=== PATIENT | male | born 1995 | race Caucasian/White ===

== ENCOUNTER 2023-10-25 17:26 | Emergency (ER) | payer MEDICAID, SELFPAY ==
[2023-10-25 17:29] VITALS: BP 151/84; PULSE 80; RESP 18; TEMP 37.1; O2SAT 96; BMI 35.9
--- NOTE | 2023-10-25 17:46 | ED_ITS ---
HPI - General Adult General Chief complaint: Ear/Nose/Throat Problem Stated complaint: L ear, earbud cap stuck in ear Time Seen by Provider: 10/25/23 17:27 History of Present Illness HPI narrative: This 28-year-old male comes in with an ear bud lodged in his left ear canal. He states that he attempted to remove it himself but ended up pushing it in farther. He does not have any other complaints. Related Data Home Medications Medication Instructions Recorded Confirmed acetaminophen 500 mg capsule 500 mg PO Q6H PRN 10/25/23 10/25/23 duloxetine 30 mg capsule,delayed 90 mg PO DAILY 10/25/23 10/25/23 release famotidine 40 mg tablet 40 mg PO DAILY 10/25/23 10/25/23 fluticasone propionate inhalation 10/25/23 gabapentin 600 mg tablet 600 mg PO TID 10/25/23 10/25/23 hydroxyzine HCl 50 mg tablet 50 mg PO QHS 10/25/23 10/25/23 olanzapine 10 mg tablet 10 mg PO DAILY 10/25/23 10/25/23 polyethylene glycol 3350 .ROUTE PRN 10/25/23 sennosides 8.6 mg capsule (senna) 8.6 mg PO DAILY 10/25/23 10/25/23 Allergies Allergy/AdvReac Type Severity Reaction Status Date / Time No Known Drug Allergies Allergy Verified 10/25/23 17:36 Review of Systems Status of ROS: Reports: 10 or more systems reviewed and unremarkable except as noted in History and below Narrative: Constitutional: No fevers, no weight gain or loss. Eyes: No discharge. No vision changes. HENT: No congestion, no sore throat . Foreign object in the left ear as described above. Cardiovascular: No chest pain, no palpitations. Respiratory: No shortness of breath, no wheezes, no cough. Gastrointestinal: No abdominal pain, no vomiting, no diarrhea. Genitourinary: No dysuria, no hematuria. Musculoskeletal: Normal range of motion. Skin: No rashes, no pruritis. Neurological: No dizziness, weakness, sensory change, speech change. Endo/Heme/Allergies: No bruising or bleeding. No polydipsia. Pysch: no suicidality, no anxiety, no insomnia. All other systems reviewed and are negative. Exam Narrative: Exam Narrative: Constitutional: Well-developed, well-nourished, no acute distress. HEENT: Normocephalic, atraumatic. Foreign object in the left ear canal. Neck: Normal range of motion. Nontender. Supple. Heart: Regular. No murmurs. Normal rate. Intact distal pulses. Lungs: Clear to auscultation. No chest discomfort. No wheezes, rhonchi, or rales. Abdomen: Normal bowel sounds. Nontender. No rebound tenderness. Genitalia: Deferred. Back: No midline tenderness. Normal range of motion. Extremities: Normal range of motion. No injury. Skin: Intact. No rash. Warm. No erythema or pallor. Neurologic: No altered sensation. No weakness. Alert and oriented. Psychiatric: No suicidality. No anxiety or depression. No insomnia. Nursing notes and vitals signs are reviewed. Const: Vital Signs, click to edit/add: Vital Signs - 24 hr 10/25/23 17:29 Temperature 98.8 F Pulse Rate [Pulse Oximeter] 80 Respiratory Rate 18 Blood Pressure [Ri ght Upper Arm] 151/84 H Pulse Oximetry 96 Oxygen Delivery Me thod Room Air Course Vital Signs Vital signs: Initial Vital Signs Temperature 98.8 F 10/25/23 17:29 Temperature Source Temporal Artery Scan 10/25/23 17:29 Pulse Rate 80 10/25/23 17:29 Respiratory Rate 18 10/25/23 17:29 Blood Pressure 151/84 H 10/25/23 17:29 Blood Pressure Mean 106 H 10/25/23 17:29 Blood Pressure Position Sitting 10/25/23 17:29 Pulse Oximetry 96 10/25/23 17:29 Oxygen Delivery Method Room Air 10/25/23 17:29 Vital Signs Temperature 98.8 F 10/25/23 17:29 Pulse Rate 80 10/25/23 17:29 Respiratory Rate 18 10/25/23 17:29 Blood Pressure 151/84 H 10/25/23 17:29 Pulse Oximetry 96 10/25/23 17:29 Oxygen Delivery Method Room Air 10/25/23 17:29 Temperature 98.8 F 10/25/23 17:29 Pulse Rate 80 10/25/23 17:29 Respiratory Rate 18 10/25/23 17:29 Blood Pressure 151/84 H 10/25/23 17:29 Pulse Oximetry 96 10/25/23 17:29 Oxygen Delivery Method Room Air 10/25/23 17:29 Medical Decision Making MDM Narrative Medical decision making narrative: This patient has an ear bud lodged in his left ear canal. I made several attempts with a pickups and was finally able to remove the ear bud. There is no bleeding or sign of injury but there is some erythema in the left ear canal. He is instructed to use Tylenol and ibuprofen as needed and directed. Discharge Plan Discharge Clinical Impression: Foreign body of ear, left Patient Disposition: Home w/ Parent or Adult Condition: Improved Additional Instructions: use [id number] meds as needed and directed. Follow up with MD or return if worsening. Prescriptions: No Action hydroxyzine HCl 50 mg tablet 50 mg PO QHS olanzapine 10 mg tablet 10 mg PO DAILY duloxetine 30 mg capsule,delayed release(DR/EC) 90 mg PO DAILY gabapentin 600 mg tablet 600 mg PO TID acetaminophen 500 mg capsule 500 mg PO Q6H PRN senna 8.6 mg capsule 8.6 mg PO DAILY polyethylene glycol 3350 [Miralax] .ROUTE PRN famotidine 40 mg tablet 40 mg PO DAILY fluticasone propionate [Flovent Diskus] inhalation Stand Alone Forms: [employer] ([employer]) Info Instructions
== END 2023-10-25 18:02 | disposition home or self-care (01) ==
PROVIDERS: Emergency Provider Emergency Medicine Emergency Medical Services; PCP Family Medicine
DX: T16.2XXA Foreign body in left ear, initial encounter (principal)
CPT/HCPCS: 99283; 99284

== ENCOUNTER 2024-09-22 06:41 | Emergency (ER) | payer MEDICAID, SELFPAY ==
[2024-09-22 06:52] VITALS: BP 136/89; PULSE 95; RESP 20; TEMP 37.4; O2SAT 97; BMI 36.6
[2024-09-22 07:22] VITALS: PULSE 97; RESP 18; O2SAT 97
[2024-09-22 07:30] VITALS: PULSE 89; O2SAT 96
[2024-09-22 07:45] VITALS: PULSE 78; O2SAT 96
--- NOTE | 2024-09-22 07:49 | ED.GENADULT ---
HPI - General Adult General Chief complaint: Cough Stated complaint: cough,vomiting blod Time Seen by Provider: 09/22/24 07:04 Source: patient and family Mode of arrival: ambulatory Limitations: no limitations History of Present Illness HPI narrative: 29-year-old autistic male presents to the emergency department for evaluation of throat irritation, cough and poor sleep for the past several months. The rationale for why he comes in in the wee hours over a weekend is unclear. He was last evaluated by his primary care provider for the exact same symptoms 1 month ago. At that time, patient had been previously prescribed famotidine and was recommended that he have an endoscopy. This was scheduled for him but the patient no showed out of anxiety. He has not had any vomiting. He does smoke. He takes several medications that would increase his risk of reflex. He does report more congestion and runny nose and wonders if there could be other reasons for this throat irritation. He asked his mother to bring him in since he is frustrated with the ongoing symptoms but has not carried through with the previous recommendations. No injury or trauma. No fever no recent illness exposure. No recent changes in medications. Has not tried Tylenol, ibuprofen or any other recent dthz-nsp-quffkdy treatments that would be expected. Past medical history notable for anxiety, autism. Home medications are duloxetine, gabapentin, hydroxyzine and olanzapine. His mother does answer most of the questions for him and this visit today. Social history pertinent for smoking. ROS notable for the HEENT symptoms and some mild chronic cough as stated above. When I asked further clarity, the cough is nonproductive and is mainly just with laying down. Related Data Home Medications ?Medication ?Instructions ?Recorded ?Confirmed acetaminophen 500 mg capsule 500 mg PO Q6H PRN 10/25/23 09/22/24 duloxetine 30 mg capsule,delayed 90 mg PO DAILY 10/25/23 09/22/24 release famotidine 40 mg tablet 40 mg PO DAILY 10/25/23 09/22/24 fluticasone propionate inhalation 10/25/23 gabapentin 600 mg tablet 600 mg PO TID 10/25/23 09/22/24 hydroxyzine HCl 50 mg tablet 50 mg PO QHS 10/25/23 09/22/24 olanzapine 10 mg tablet 10 mg PO DAILY 10/25/23 09/22/24 polyethylene glycol 3350 .ROUTE PRN 10/25/23 sennosides 8.6 mg capsule (senna) 8.6 mg PO DAILY 10/25/23 10/25/23 Previous Rx's ?Medication ?Instructions ?Recorded doxycycline hyclate 100 mg capsule 100 mg PO BID #20 caps 09/22/24 fluticasone propionate 50 1 spray intranasal BID #16 grams 09/22/24 mcg/actuation nasal spray,suspension (Flonase Allergy Relief) Allergies Allergy/AdvReac Type Severity Reaction Status Date / Time No Known Drug Allergies Allergy Verified 10/25/23 17:36 [facility] Medical History Vitamin D deficiency ?E55.9 - Vitamin D deficiency, unspecified (ICD-10) Asthma ?J45.909 - Unspecified asthma, uncomplicated (ICD-10) Oppositional defiant disorder ?F91.3 - Oppositional defiant disorder (ICD-10) Obesity ?E66.9 - Obesity, unspecified (ICD-10) Constipation ?K59.00 - Constipation, unspecified (ICD-10) Autistic disorder, current or active state ?F84.0 - Autistic disorder (ICD-10) Attention deficit disorder with hyperactivity ?F90.9 - Attention-deficit hyperactivity disorder, unspecified type (ICD-10) Asperger disorder ?F84.5 - Asperger's syndrome (ICD-10) Anxiety disorder ?F41.9 - Anxiety disorder, unspecified (ICD-10) Social History Smoking Status: Current every day smoker How often do you have a drink containing alcohol: monthly or less AUDIT-C Alcohol total score: 1 Non-prescribed substance use: marijuana (any form) Exam Const: Vital Signs, click to edit/add: Vital Signs - 24 hr 09/22/24 06:52 Temperature 99.4 F Pulse Rate [Left P ulse Oximeter] 95 Respiratory Rate 20 Blood Pressure [Ri ght Forearm] 136/89 Pulse Oximetry 97 Oxygen Delivery Me thod Room Air Documenting provider has reviewed patient's vital signs: yes Common normals: no apparent distress and alert General appearance: cooperative Other: Anxious but answers questions. Thought process seems logical. HENMT: Common normals: normocephalic Head and scalp: normocephalic Face and sinus: normal facial exam Other: Posterior pharynx with cobblestoning pattern. No swelling or exudate to the tonsillar pillars. Nose congested with rhinorrhea. No facial swelling. Normal dentition. Eye: Common normals: conjunctivae normal General eye: normal appearance of both eyes Conjunctiva: conjunctiva(e) normal Neck & C-Spine: Common normals: full ROM and no lymphadenopathy General: normal visual inspection Resp: Common normals: normal respiratory effort and no use of accessory muscles Effort & inspection: able to speak in complete sentences Cardio: Common normals: regular rate, regular rhythm, S1 normal heart sound, S2 normal heart sound and no murmurs Rate: regular rate Rhythm: regular rhythm Heart sounds: S1 normal and S2 normal Neuro: Sensorium/orientation: alert Speech: speech normal Motor exam: no movement abnormalities noted Psych: Attitude: calm Insight: fair Judgement: fair Skin: Common normals: no rashes or lesions noted General skin exam: no rashes or lesions noted Course Course ED Course: 29-year-old male with throat irritation, chronic cough secondary to GERD versus postnasal drip. Duration of symptoms, smoking certainly does make him at risk of either condition. Inadequate treatment on famotidine per his report but patient has not followed through with treatment plan. I do question if he does have a sinus infection as he does have enough risk factors for this and I do see some nasal irritation as well. I do not doubt that he probably also has some underlying GERD. Counseled patient that I would like to do a trial of and doxycycline 100 mg p.o. b.i.d. for 10 days in addition to Flonase nasal spray 1 spray in each nostril 2 times daily. First dose of each given in ED. Patient will make a follow-up appoint with his primary care doctor in 2 weeks. He is also counseled that he may increase his famotidine to a stronger medication like xgzy-wzc-itlymva omeprazole if he chooses. Try not to eat within 2 hours of bedtime, decreased carbonated beverages, try to cut out smoking. Alarm symptoms reviewed that would warrant ED presentation. Mom and patient verbalized understanding and agreement. Viral strep swabs collected just to make sure there is not an acute process also going on. Vital Signs Vital signs: Initial Vital Signs Temperature 99.4 F 09/22/24 06:52 Temperature Source Temporal Artery Scan 09/22/24 06:52 Pulse Rate 95 09/22/24 06:52 Pulse Rhythm Regular 09/22/24 06:52 Respiratory Rate 20 09/22/24 06:52 Blood Pressure 136/89 09/22/24 06:52 Blood Pressure Mean 104 09/22/24 06:52 Blood Pressure Position Sitting 09/22/24 06:52 Pulse Oximetry 97 09/22/24 06:52 Oxygen Delivery Method Room Air 09/22/24 06:52 Vital Signs Temperature 99.4 F 09/22/24 06:52 Pulse Rate 95 09/22/24 06:52 Respiratory Rate 20 09/22/24 06:52 Blood Pressure 136/89 09/22/24 06:52 Pulse Oximetry 97 09/22/24 06:52 Oxygen Delivery Method Room Air 09/22/24 06:52 Temperature 99.4 F 09/22/24 06:52 Pulse Rate 95 09/22/24 06:52 Respiratory Rate 20 09/22/24 06:52 Blood Pressure 136/89 09/22/24 06:52 Pulse Oximetry 97 09/22/24 06:52 Oxygen Delivery Method Room Air 09/22/24 06:52 Medical Decision Making Lab Data Lab results reviewed: Yes I reviewed the patient's lab results Labs: Lab Results 09/22/24 Range/Units 07:15 Group A Strep DNA NOT DETECTED (Not Detectd) Discharge Plan Discharge Clinical Impression: Post-nasal drip, Sinusitis Patient Disposition: Home w/ Parent or Adult Condition: Stable Instructions: Sinusitis (ED) Additional Instructions: As we discussed, I do see some signs of irritation in the back part of her throat. There are no signs of swelling, abscess, tumor or other major abnormality. This is reassuring. It is difficult for me to tell if this is from a postnasal drip or reflux. Several of the medications that you take including the fact that you smoke would certainly increase your risk of gastric reflux. I do strongly recommend that you reschedule your endoscopy that was previously recommended by your primary care provider. I would like for you to continue taking the famotidine in the meantime. I do see enough evidence that there is a postnasal drip at this time. Based on the duration of symptoms and the fact that you smoke, this certainly could be bacterial. I recommended a 10 day course of doxycycline, a common antibiotic. It may cause a mild amount of GI upset but otherwise has minimal side effects and does not interact in a dangerous way with your other medications. I would also recommend that you use Flonase nasal spray 1 spray in each nostril twice daily for the next 2 weeks. If her symptoms have not improved in 2 weeks, we can assume that your symptoms are GI in nature and hopefully you would have your endoscopy coming up very soon. There is not much that we can offer through an emergency department for further management of this. Your also welcome to switch from famotidine to ilju-fod-ogkfntn omeprazole which is a stronger antacid if you would like as well. It is important that you take the medication regularly. Try to cut down on carbonated beverages, alcohol and smoking if you are able as this will certainly help your stomach also. I cannot schedule the endoscopy, that order would need to come from your primary care provider. You may return to work and all family activities as normal. Activity Level: Activity as Tolerated Discharge Diet: Regular Prescriptions: New doxycycline hyclate 100 mg capsule 100 mg PO BID Qty: 20 0RF fluticasone propionate [Flonase Allergy Relief] 50 mcg/actuation spray,suspension 1 spray intranasal BID Qty: 16 2RF Rx Instructions: administer into each nostril No Action hydroxyzine HCl 50 mg tablet 50 mg PO QHS olanzapine 10 mg tablet 10 mg PO DAILY duloxetine 30 mg capsule,delayed release(DR/EC) 90 mg PO DAILY gabapentin 600 mg tablet 600 mg PO TID acetaminophen 500 mg capsule 500 mg PO Q6H PRN senna 8.6 mg capsule 8.6 mg PO DAILY polyethylene glycol 3350 [Miralax] .ROUTE PRN famotidine 40 mg tablet 40 mg PO DAILY fluticasone propionate [Flovent Diskus] inhalation Follow Up/Referrals: Henry Mariscal MD [Primary Care Provider] - Stand Alone Forms: [email or web address] Info Instructions
[2024-09-22 07:52] LABS: Strep A DNA Probe* NOT DETECTED (Not Detectd)
[2024-09-22 08:00] VITALS: PULSE 78; O2SAT 96
[2024-09-22 08:06] LABS: PCR FLU A Negative PCR FLU A (Negative); PCR FLU B Negative PCR FLU B (Negative); PCR RSV Negative PCR RSV (Negative); SARS PCR* Negative SARS-CoV-2 (Negative)
[2024-09-22] MEDS: FLUTICASONE PROPIONATE NASAL 1 SPRAY NOSTRIL-B (08:17)
[2024-09-22] MEDS: DOXYCYCLINE HYCLATE 100 MG PO (08:17)
== END 2024-09-22 08:31 | disposition home or self-care (01) ==
PROVIDERS: Family Medicine; Emergency Provider Internal Medicine; PCP Family Medicine
DX: J32.9 Chronic sinusitis, unspecified (principal)
CPT/HCPCS: 87631; 87651; 99283; A9270

== ENCOUNTER 2024-12-14 07:50 | Outpatient (CLI) | payer MEDICAID, SELFPAY ==
--- NOTE | 2024-12-14 08:31 | W.ANESCHARGE ---
Anesthesia Charges Start Date/Time Anesthesia Start Date: 12/14/24 Anesthesia Start Time: 08:40 Stop Date/Time Anesthesia Stop Date: 12/14/24 Anesthesia Stop Time: 08:58 Coding CPT Codes CPT Codes: ANES UPR GI NDSC PX NOS - 06179 ([id number]) QK - TAXI CAB DRIVER 2-4 CNCRNT ANES PROC, QX - VP MEDICAL SVC W/ MD MED DIRECTION, P3 - PATIENT W/SEVERE SYS DISEASE
--- NOTE | 2024-12-14 09:25 | W.ANESCHARGE ---
Anesthesia Charges Start Date/Time Anesthesia Start Date: 12/14/24 Anesthesia Start Time: 08:40 Stop Date/Time Anesthesia Stop Date: 12/14/24 Anesthesia Stop Time: 08:58 Coding CPT Codes CPT Codes: ANES UPR GI NDSC PX NOS - 03047 ([id number]) QK - DEVELOPMENT LEAD 2-4 CNCRNT ANES PROC, QX - SKIAGRAPHER SVC W/ MD MED DIRECTION, P3 - PATIENT W/SEVERE SYS DISEASE
== END 2024-12-14 07:51 | disposition home or self-care (01) ==
LOC: OP CLINIC 07:53
PROVIDERS: PCP Family Medicine; Visit Provider Internal Medicine Gastroenterology
DX: R10.13 Epigastric pain (principal); K21.9 Gastro-esophageal reflux disease without esophagitis
CPT/HCPCS: 00731; 43239; 88305; J2704; J3490